=== PATIENT | male | born 1980 | race Caucasian/White ===

== ENCOUNTER → 2023-04-04 08:53 | Outpatient (CLI) | payer BC, SELFPAY ==
--- NOTE | ~2023-04-04 | US_ITS ---
US right upper quadrant INDICATION: Elevated liver enzymes. PROCEDURE: Realtime right upper abdominal ultrasound. COMPARISON: No prior studies for comparison. FINDINGS: The pancreas is normal without focal mass or pancreatic ductal dilation. Liver echotexture is increased, consistent with fatty infiltration. There is normal directional flow in the portal ve in. There is a 6 mm gallbladder polyp. No gallstones, gallbladder wall thickening or pericholecystic flui d. Common bile duct measures 4 mm. No sonographic Chu's sign. IMPRESSION: 1: Fatty infiltration of the liver. 2: Gallbladder polyp measuring 6 mm. Reviewed, dictated and finalized at location D. [facility]
== END ==
PROVIDERS: PCP Internal Medicine; Visit Provider Internal Medicine
DX: R74.8 Abnormal levels of other serum enzymes (principal); K76.0 Fatty (change of) liver, not elsewhere classified; K82.4 Cholesterolosis of gallbladder
CPT/HCPCS: 76705